=== PATIENT | female | born 1960 | race Caucasian/White ===

== ENCOUNTER 2017-08-12 05:52 | Inpatient (IN) ==
[2017-08-02 16:00] LABS: Basophils # 0.1 10*3/uL (0.0-0.2); Basophils % 0.5 % (0.0-0.8); Eosinophils # 0.2 10*3/uL (0.0-0.87); Eosinophils % 2.2 % (0.00-10.9); Hemoglobin 12.5 GM/DL (12.0-16.0); Immature Granulocytes % 0.4 %; Immature Granulocytes Absolute 0.04 #; Lymphocytes # 2.8 10*3/uL (1.4-4.0); Lymphocytes % 26.9 % (21.3-54.2); Mean Corpuscular HGB Conc 32.9 GM/DL (32-36); Mean Corpuscular Hemoglobin 29 PG (27-34); Mean Platelet Volume 10.3 FL (9.6-12.0); Monocytes # 0.7 10*3/uL (0.11-0.8); Monocytes % 6.6 % (1.7-12.7); Neutrophils # 6.6 10*3/uL (1.4-7.4); Neutrophils % 63.4 % (38.7-73.9); Platelet Count 236 T/CUMM (130-400); Red Blood Count 4.37 MC/CUMM (3.8-5.5); Red Cell Distribution Width 12.8 % (9.3-17.3); White Blood Count 10.5 T/CUMM (4-12)
[2017-08-02 16:12] LABS: PT Patient Result 10.7 SECS; Partial Thromboplastin Time 25.5 SECS (0-40)
[2017-08-02 16:14] LABS: Apearance,Urine CLEAR (Clear); Bilirubin,Urine Negative (Negative); Blood, Urine Negative (Negative); Glucose,Urine (UA) Negative (Negative); Hyaline Casts,Urine 3 /LPF (0-3); Ketones,Urine Negative (Negative); Mucus,Urine Occasional /LPF (Occasional); Nitrite,Urine Negative (Negative); Protein,Urine Negative; Squamous Epithelial Cell,Urine Occasional /HPF (0-10); Urine Color Yellow (Yellow); Urine Specific Gravity 1.014 (1.001-1.035); Urine Urobilinogen < 2.0 EU/DL (0.2-1.0); WBC,Urine <1 /HPF (0-6)
[2017-08-02 16:24] LABS: Alanine Aminotransferase 22 U/L (13-56); Albumin 3.5 G/DL (3.4-5.0); Alkaline Phosphatase 76 U/L (45-117); Aspartate Amino Transferase 18 U/L (0-37); Bilirubin,Total < 0.39 MG/DL (0.2-1.0); Blood Urea Nitrogen 16 MG/DL (7-18); Glucose 94 MG/DL (74-106); Osmolality,Calculated 277.5 MOS/KG (273-304); Potassium 4.1 MMOL/L (3.5-5.1); Sodium 139 MMOL/L (136-145); Total Protein 7.2 G/DL (6.4-8.3)
[2017-08-12] MEDS ORDERED: VANCOMYCIN INJ 1,000 MG in SODIUM CHLORIDE 0.9% 250 ML IV ONE (06:00)
[2017-08-12] MEDS ORDERED: CLINDAMYCIN INJ 900 MG in PREMIX 1 EACH IV ONE (06:00)
[2017-08-12] MEDS ORDERED: VANCOMYCIN 1,000 MG VIAL ONE (06:06)
[2017-08-12] MEDS ORDERED: CLINDAMYCIN INJ 50 ML IV ONE (06:06)
[2017-08-12] MEDS ORDERED: TRANEXAMIC ACID 1,000 MG/10 ML VIAL IV ONE ×2 (06:36→06:41)
[2017-08-12] MEDS ORDERED: BACITRACIN OINT 0.9 GM PACK TOP ONE (06:36)
[2017-08-12] MEDS ORDERED: BUPIVACAINE SPINAL 0.75% 2 ML AMP SPINAL ONE (06:40)
[2017-08-12] MEDS ORDERED: LACTATED RINGERS 1,000 ML IV SCH (07:00)
[2017-08-12] MEDS ORDERED: ROPIVACAINE 0.5% 30 ML VIAL ONE (09:00)
[2017-08-12] MEDS ORDERED: ONDANSETRON 4 MG/2 ML VIAL ONE ×2 (09:15→09:45)
[2017-08-12] MEDS ORDERED: ALBUTEROL 2.5 MG/3 ML NEB RESP TX PRN ×2 (09:18)
[2017-08-12] MEDS ORDERED: MAGNESIUM HYDROXIDE SUSP 30 ML UDCUP PO PRN (09:19)
[2017-08-12] MEDS ORDERED: ZALEPLON 5 MG CAPSULE PO PRN (09:19)
[2017-08-12] MEDS ORDERED: MORPHINE 2 MG/1 ML SYRINGE IV PRN (09:19)
[2017-08-12] MEDS ORDERED: oxyCODONE IR 5 MG TABLET PO PRN ×2 (09:19)
[2017-08-12] MEDS ORDERED: diphenhydrAMINE CAP 25 MG CAPSULE PO PRN (09:19)
[2017-08-12] MEDS ORDERED: SUMATRIPTAN 100 MG PO SCH (09:30)
[2017-08-12] MEDS ORDERED: fentaNYL 100 MCG/2 ML VIAL ONE (09:44)
[2017-08-12] MEDS ORDERED: PROPOFOL 200 MG/20 ML VIAL IV ONE (09:44)
[2017-08-12] MEDS ORDERED: MIDAZOLAM 2 MG/2 ML VIAL ONE ×2 (09:44)
[2017-08-12] MEDS ORDERED: LACTATED RINGERS 1,000 ML IV ONE (09:45)
[2017-08-12] MEDS ORDERED: PROPOFOL 500 MG/50 ML BOTTLE IV ONE (09:45)
[2017-08-12] MEDS ORDERED: ACETAMINOPHEN 1,000 MG/100 ML VIAL IV ONE (09:45)
[2017-08-12] MEDS ORDERED: SODIUM CHLORIDE 0.9% 100 ML IV ONE (09:45)
[2017-08-12] MEDS: LACTATED RINGERS 1,000 ML IV SCH ×2 (10:59→17:43)
[2017-08-12] MEDS: KETOROLAC 30 MG/1 ML VIAL IV SCH ×3 (11:22→21:09)
[2017-08-12] MEDS: ACETAMINOPHEN 500 MG TABLET PO SCH ×2 (13:57→20:06)
[2017-08-12] MEDS: CLINDAMYCIN INJ 900 MG in PREMIX 1 EACH IV SCH ×2 (13:59→21:09)
[2017-08-12] MEDS: MORPHINE 2 MG/1 ML SYRINGE IV PRN (14:00)
[2017-08-12] MEDS: ONDANSETRON 4 MG/2 ML VIAL IV PRN (16:29)
[2017-08-12] MEDS: DOCUSATE SODIUM 100 MG CAPSULE PO SCH (20:05)
[2017-08-12] MEDS: MONTELUKAST 10 MG TABLET PO SCH (20:06)
[2017-08-12] MEDS: DULoxetine 20 MG CAPSULE PO SCH (20:06)
[2017-08-12] MEDS: FLUTICASONE/SALMETEROL 500-50 DISKUS 14 DOSE INH SCH (20:06)
[2017-08-13] MEDS: ACETAMINOPHEN 500 MG TABLET PO SCH ×2 (01:05→09:12)
[2017-08-13] MEDS: LACTATED RINGERS 1,000 ML IV SCH (02:17)
[2017-08-13] MEDS: KETOROLAC 30 MG/1 ML VIAL IV SCH (03:19)
[2017-08-13] MEDS: FONDAPARINUX 2.5 MG/0.5 ML SYRINGE SUBCUT SCH (05:52)
[2017-08-13] MEDS: CLINDAMYCIN INJ 900 MG in PREMIX 1 EACH IV SCH ×3 (05:53→22:15)
[2017-08-13 07:17] LABS: Basophils % 0.3 % (0.0-0.8); Eosinophils # 0.3 10*3/uL (0.0-0.87); Eosinophils % 2.4 % (0.00-10.9); Hemoglobin 10.1 GM/DL (12.0-16.0); Immature Granulocytes % 0.6 %; Immature Granulocytes Absolute 0.06 #; Lymphocytes % 18.6 % (21.3-54.2); Mean Corpuscular HGB Conc 32.6 GM/DL (32-36); Mean Corpuscular Hemoglobin 29 PG (27-34); Mean Corpuscular Volume 89.1 FL (87-102); Mean Platelet Volume 10.5 FL (9.6-12.0); Monocytes # 1.2 10*3/uL (0.11-0.8); Monocytes % 11.1 % (1.7-12.7); Neutrophils # 7.2 10*3/uL (1.4-7.4); Platelet Count 153 T/CUMM (130-400); Red Blood Count 3.48 MC/CUMM (3.8-5.5); Red Cell Distribution Width 13.1 % (9.3-17.3); White Blood Count 10.7 T/CUMM (4-12)
[2017-08-13 07:56] LABS: Calcium 8.2 MG/DL (8.5-10.1); Osmolality,Calculated 279.4 MOS/KG (273-304); Potassium 4.2 MMOL/L (3.5-5.1)
[2017-08-13] MEDS ORDERED: ACETAMINOPHEN 500 MG TABLET ONE (08:53)
[2017-08-13] MEDS: ESTRADIOL 1 MG TABLET PO SCH (09:12)
[2017-08-13] MEDS: MULTIVITAMIN (CENTRUM) TABLET PO SCH (09:12)
[2017-08-13] MEDS: buPROPion SR 150 MG TABLET PO SCH (09:12)
[2017-08-13] MEDS: DULoxetine 20 MG CAPSULE PO SCH ×2 (09:12→20:42)
[2017-08-13] MEDS: METOPROLOL SUCCINATE XL 25 MG TABLET PO SCH (09:13)
[2017-08-13] MEDS: TELMISARTAN 40 MG TABLET PO SCH (09:13)
[2017-08-13] MEDS: POTASSIUM CHLORIDE 20 MEQ TABLET PO SCH (09:13)
[2017-08-13] MEDS: PANTOPRAZOLE 40 MG TABLET PO SCH (09:13)
[2017-08-13] MEDS: FUROSEMIDE 20 MG TABLET PO SCH (09:13)
[2017-08-13] MEDS: DOCUSATE SODIUM 100 MG CAPSULE PO SCH ×2 (09:13→20:42)
[2017-08-13] MEDS: MORPHINE 2 MG/1 ML SYRINGE IV PRN ×2 (09:30→20:43)
[2017-08-13] MEDS: FLUTICASONE/SALMETEROL 500-50 DISKUS 14 DOSE INH SCH ×2 (09:31→20:42)
[2017-08-13] MEDS: CELECOXIB 200 MG CAPSULE PO SCH (18:20)
[2017-08-13] MEDS: MONTELUKAST 10 MG TABLET PO SCH (20:42)
[2017-08-14] MEDS: CLINDAMYCIN INJ 900 MG in PREMIX 1 EACH IV SCH ×3 (05:23→22:43)
[2017-08-14] MEDS: FONDAPARINUX 2.5 MG/0.5 ML SYRINGE SUBCUT SCH (05:23)
[2017-08-14 06:02] LABS: Basophils % 0.3 % (0.0-0.8); Eosinophils # 0.4 10*3/uL (0.0-0.87); Eosinophils % 3.7 % (0.00-10.9); Hemoglobin 10.1 GM/DL (12.0-16.0); Immature Granulocytes % 1.1 %; Immature Granulocytes Absolute 0.13 #; Lymphocytes # 2.2 10*3/uL (1.4-4.0); Lymphocytes % 18.4 % (21.3-54.2); Mean Corpuscular HGB Conc 31.6 GM/DL (32-36); Mean Corpuscular Hemoglobin 29 PG (27-34); Mean Corpuscular Volume 91.2 FL (87-102); Mean Platelet Volume 10.7 FL (9.6-12.0); Monocytes # 1.2 10*3/uL (0.11-0.8); Monocytes % 10.3 % (1.7-12.7); Neutrophils # 7.8 10*3/uL (1.4-7.4); Neutrophils % 66.2 % (38.7-73.9); Platelet Count 175 T/CUMM (130-400); Red Blood Count 3.51 MC/CUMM (3.8-5.5); Red Cell Distribution Width 13.1 % (9.3-17.3); White Blood Count 11.8 T/CUMM (4-12)
[2017-08-14] MEDS: DOCUSATE SODIUM 100 MG CAPSULE PO SCH ×2 (09:11→21:29)
[2017-08-14] MEDS: CELECOXIB 200 MG CAPSULE PO SCH (09:11)
[2017-08-14] MEDS: ESTRADIOL 1 MG TABLET PO SCH (09:11)
[2017-08-14] MEDS: DULoxetine 20 MG CAPSULE PO SCH ×2 (09:11→21:28)
[2017-08-14] MEDS: POTASSIUM CHLORIDE 20 MEQ TABLET PO SCH (09:11)
[2017-08-14] MEDS: TELMISARTAN 40 MG TABLET PO SCH (09:11)
[2017-08-14] MEDS: MULTIVITAMIN (CENTRUM) TABLET PO SCH (09:11)
[2017-08-14] MEDS: PANTOPRAZOLE 40 MG TABLET PO SCH (09:11)
[2017-08-14] MEDS: buPROPion SR 150 MG TABLET PO SCH (09:12)
[2017-08-14] MEDS: METOPROLOL SUCCINATE XL 25 MG TABLET PO SCH (09:12)
[2017-08-14] MEDS: FUROSEMIDE 20 MG TABLET PO SCH (09:14)
[2017-08-14] MEDS: FLUTICASONE/SALMETEROL 500-50 DISKUS 14 DOSE INH SCH ×2 (11:55→21:30)
[2017-08-14] MEDS: MONTELUKAST 10 MG TABLET PO SCH (21:28)
[2017-08-15] MEDS: FONDAPARINUX 2.5 MG/0.5 ML SYRINGE SUBCUT SCH (05:19)
[2017-08-15 05:28] LABS: Basophils # 0.1 10*3/uL (0.0-0.2); Basophils % 0.5 % (0.0-0.8); Eosinophils # 0.6 10*3/uL (0.0-0.87); Eosinophils % 5.2 % (0.00-10.9); Hematocrit 31.5 VOL% (35.7-47.0); Hemoglobin 10.2 GM/DL (12.0-16.0); Immature Granulocytes % 0.6 %; Immature Granulocytes Absolute 0.07 #; Lymphocytes # 2.2 10*3/uL (1.4-4.0); Lymphocytes % 19.6 % (21.3-54.2); Mean Corpuscular HGB Conc 32.4 GM/DL (32-36); Mean Corpuscular Hemoglobin 29 PG (27-34); Mean Corpuscular Volume 89.7 FL (87-102); Mean Platelet Volume 10.8 FL (9.6-12.0); Monocytes % 8.8 % (1.7-12.7); Neutrophils # 7.3 10*3/uL (1.4-7.4); Neutrophils % 65.3 % (38.7-73.9); Platelet Count 208 T/CUMM (130-400); Red Blood Count 3.51 MC/CUMM (3.8-5.5); White Blood Count 11.2 T/CUMM (4-12)
[2017-08-15] MEDS: ONDANSETRON 4 MG/2 ML VIAL IV PRN (09:46)
[2017-08-15] MEDS: FLUTICASONE/SALMETEROL 500-50 DISKUS 14 DOSE INH SCH ×2 (09:50→20:19)
[2017-08-15] MEDS: MULTIVITAMIN (CENTRUM) TABLET PO SCH (09:51)
[2017-08-15] MEDS: CELECOXIB 200 MG CAPSULE PO SCH (09:51)
[2017-08-15] MEDS: buPROPion SR 150 MG TABLET PO SCH (09:52)
[2017-08-15] MEDS: DULoxetine 20 MG CAPSULE PO SCH ×2 (09:52→20:20)
[2017-08-15] MEDS: PANTOPRAZOLE 40 MG TABLET PO SCH (09:52)
[2017-08-15] MEDS: DOCUSATE SODIUM 100 MG CAPSULE PO SCH ×2 (09:52→20:20)
[2017-08-15] MEDS: TELMISARTAN 40 MG TABLET PO SCH (09:52)
[2017-08-15] MEDS: POTASSIUM CHLORIDE 20 MEQ TABLET PO SCH (09:52)
[2017-08-15] MEDS: ESTRADIOL 1 MG TABLET PO SCH (09:52)
[2017-08-15] MEDS: METOPROLOL SUCCINATE XL 25 MG TABLET PO SCH (09:52)
[2017-08-15] MEDS: FUROSEMIDE 20 MG TABLET PO SCH (10:32)
[2017-08-15] MEDS: MONTELUKAST 10 MG TABLET PO SCH (20:20)
[2017-08-16] MEDS: FONDAPARINUX 2.5 MG/0.5 ML SYRINGE SUBCUT SCH (05:20)
[2017-08-16] MEDS: buPROPion SR 150 MG TABLET PO SCH (09:38)
[2017-08-16] MEDS: FLUTICASONE/SALMETEROL 500-50 DISKUS 14 DOSE INH SCH (09:38)
[2017-08-16] MEDS: METOPROLOL SUCCINATE XL 25 MG TABLET PO SCH (09:39)
[2017-08-16] MEDS: FUROSEMIDE 20 MG TABLET PO SCH (09:39)
[2017-08-16] MEDS: PANTOPRAZOLE 40 MG TABLET PO SCH (09:39)
[2017-08-16] MEDS: ESTRADIOL 1 MG TABLET PO SCH (09:39)
[2017-08-16] MEDS: DOCUSATE SODIUM 100 MG CAPSULE PO SCH (09:39)
[2017-08-16] MEDS: CELECOXIB 200 MG CAPSULE PO SCH (09:40)
[2017-08-16] MEDS: DULoxetine 20 MG CAPSULE PO SCH (09:40)
[2017-08-16] MEDS: MULTIVITAMIN (CENTRUM) TABLET PO SCH (09:40)
[2017-08-16] MEDS: POTASSIUM CHLORIDE 20 MEQ TABLET PO SCH (09:40)
[2017-08-16] MEDS: TELMISARTAN 40 MG TABLET PO SCH (09:43)
[2017-08-16 11:22] VITALS: BP 125/64
== END 2017-08-16 17:55 | disposition home health service (06) | DRG 467 ==
LOC: N.OR 05:52 → N.SDSINP 05:54 → N.3E 08:03
PROVIDERS: ADMIT Orthopaedic Surgery; ATTEND Orthopaedic Surgery